=== PATIENT | male | born 1955 | race Hispanic/Latino ===

== ENCOUNTER 2021-05-31 09:25 | Emergency (ER) | payer MEDICARE ==
[~2021-05-31] VITALS: Ht 170.2 cm; Wt 64.9 kg
[2021-05-31 09:27] VITALS: BP 121/52
[2021-05-31 09:43] LABS: BASOPHILS % (AUTO) 0.1 % (0.0-5.0); EOSINOPHILS % (AUTO) 0.5 % (0.0-8.0); HEMATOCRIT 38.3 % (42-54); LYMPHOCYTES % (AUTO) 2.2 % (21.0-51.0); MEAN CORPUSCULAR HEMOGLOBIN 31.4 pg (27.0-33.0); MEAN CORPUSCULAR HGB CONC 33.9 g/dL (32.0-36.0); MEAN CORPUSCULAR VOLUME 92.5 fL (79-99); MONOCYTES % (AUTO) 2.8 % (3.0-13.0); NEUTROPHILS % (AUTO) 93.9 % (40.0-77.0); PLATELET COUNT (AUTO) 212 K/uL (130-400); RED BLOOD CELL COUNT(AUTO) 4.14 MIL/uL (4.50-6.20); RED CELL DISTRIBUTION WIDTH 12.2 % (11.0-15.5); WHITE BLOOD COUNT (AUTO) 11.6 K/uL (4.8-10.8)
[2021-05-31 09:51] LABS: CREATININE 1.5 mg/dL (0.5-1.5); POTASSIUM 5.2 mmol/L (3.5-5.1)
[2021-05-31 09:56] LABS: ALBUMIN 3.2 g/dL (3.5-5.0); BILIRUBIN,TOTAL 1.1 mg/dL (0.2-1.0); TOTAL PROTEIN, SERUM 7.8 g/dL (6.0-8.3)
[2021-05-31 10:33] LABS: AMYLASE 47 U/L (25-115); LIPASE < 50 U/L (114-286)
[2021-05-31] MEDS ORDERED: AMOX-429 PO (14:41)
[2021-05-31] MEDS ORDERED: AMOX/CLAV 875/125MG TAB PO ONE ×2 (14:57→15:00)
== END 2021-05-31 15:00 | disposition home or self-care (01) ==
LOC: EDH 09:25
DX: K80.20 Calculus of gallbladder without cholecystitis without obstruction (principal); D72.829 Elevated white blood cell count, unspecified; R68.83 Chills (without fever); Z20.822 Contact with and (suspected) exposure to COVID-19; E78.00 Pure hypercholesterolemia, unspecified; I10 Essential (primary) hypertension
CPT/HCPCS: 36415; 71045; 76705; 80053; 82150; 83690; 85025; 87635; 87804; 93005; C9803

== ENCOUNTER 2023-09-09 13:28 | Emergency (ER) | payer MEDICARE ==
[~2023-09-09] VITALS: Ht 170.2 cm; Wt 72.6 kg
[~2023-09-09 13:28] MED LIST: AMOX-429 PO
[2023-09-09] MEDS ORDERED: ONDANSETRON 4MG INJ IVP ONE (14:30)
[2023-09-09] MEDS ORDERED: CEFAZOLIN SODIUM 1 GM VIAL IVPB SCH (14:30)
[2023-09-09] MEDS ORDERED: MORPHINE 4 MG SYG IM ONE (14:30)
[2023-09-09] MEDS ORDERED: LIDOCAINE HCL 1% 20 ML VIAL ONE (15:56)
[2023-09-09 18:17] VITALS: BP 126/74; PULSE 64; RESP 18; O2SAT 98
== END 2023-09-09 18:19 | disposition home or self-care (01) ==
LOC: EDH 13:28
DX: S69.92XA Unspecified injury of left wrist, hand and finger(s), initial encounter (principal); I10 Essential (primary) hypertension; E78.00 Pure hypercholesterolemia, unspecified; X58.XXXA Exposure to other specified factors, initial encounter; Y93.89 Activity, other specified; Y92.89 Other specified places as the place of occurrence of the external cause; Y99.8 Other external cause status
CPT/HCPCS: 99284; 96365; 96375; 73120; 73140; 96372; J0690; J2405; J2270

== ENCOUNTER 2023-11-28 14:05 | Emergency (ER) | payer MEDICARE ==
[~2023-11-28] VITALS: Ht 170.2 cm; Wt 73.5 kg
[2023-11-28 15:04] LABS: BASOPHILS # (AUTO) 0.03 K/uL (0.00-0.20); BASOPHILS % (AUTO) 0.3 % (0.0-5.0); EOSINOPHILS % (AUTO) 1.1 % (0.0-8.0); HEMATOCRIT 42.2 % (42-54); IMMATURE GRANULOCYTE ABSOLUTE 0.02 K/uL (0-1); LYMPHOCYTES # (AUTO) 1.9 K/uL (1.0-4.8); LYMPHOCYTES % (AUTO) 20.1 % (21.0-51.0); MEAN CORPUSCULAR HEMOGLOBIN 31.8 pg (27.0-33.0); MEAN CORPUSCULAR HGB CONC 34.6 g/dL (32.0-36.0); MEAN CORPUSCULAR VOLUME 91.9 fL (79-99); MONOCYTES # (AUTO) 0.5 K/uL (0.1-1.0); MONOCYTES % (AUTO) 5.6 % (3.0-13.0); NEUTROPHILS # (AUTO) 6.9 K/uL (1.8-7.7); NEUTROPHILS % (AUTO) 72.7 % (40.0-77.0); PLATELET COUNT (AUTO) 182 K/uL (130-400); RED BLOOD CELL COUNT(AUTO) 4.59 MIL/uL (4.50-6.20); RED CELL DISTRIBUTION WIDTH 12.7 % (11.0-15.5); WHITE BLOOD COUNT (AUTO) 9.5 K/uL (4.8-10.8)
[2023-11-28 15:17] LABS: CREATININE 1.4 mg/dL (0.5-1.5); POTASSIUM 4.4 mmol/L (3.5-5.1)
[2023-11-28 15:42] LABS: ADD UA MICROSCOPIC YES; APPEARANCE,URINE CLEAR (CLEAR); BILIRUBIN,URINE NEGATIVE (NEGATIVE); COLOR,URINE LIGHT-YELLOW (YELLOW); GLUCOSE, URINE (UA) NEGATIVE (NEGATIVE); KETONES,URINE NEGATIVE (NEGATIVE); LEUKOCYTE ESTERASE ,URINE NEGATIVE Leu/uL (NEGATIVE); NITRATE,URINE NEGATIVE (NEGATIVE); OCCULT BLOOD,URINE LARGE (NEGATIVE); PROTEIN,URINE NEGATIVE (NEGATIVE); UROBILINOGEN,URINE 0.2 mg/dL (0.2-1.0)
[2023-11-28 15:47] LABS: BACTERIA,URINE RARE /HPF (None Seen); MUCUS,URINE RARE LPF (None Seen); RBC,URINE 51-100 /HPF (0-1)
[2023-11-28] MEDS ORDERED: IOHEXOL-350 75 ML VIAL IV ONE (15:54)
[2023-11-28] MEDS: LACTATED RINGERS 1000ML 1,000 ML IV ONE (16:25)
[2023-11-28] MEDS: FAMOTIDINE 20MG VIAL IV ONE (16:26)
[2023-11-28] MEDS: METOCLOPRAMIDE 10 MG/2 ML VIAL IVP ONE (16:27)
[2023-11-28] MEDS: KETOROLAC 30MG VIAL (30MG/ML) IVP ONE (16:28)
[2023-11-28] MEDS ORDERED: KETO10 PO (16:48)
[2023-11-28] MEDS ORDERED: TAMS-1 PO (16:48)
[2023-11-28] MEDS ORDERED: METO-296 PO (16:48)
[2023-11-28] MEDS ORDERED: FAMO-136 PO (16:48)
[2023-11-28] MEDS: TAMSULOSIN HCL 0.4 MG CAP.ER.24H PO ONE (17:14)
[2023-11-28 17:15] VITALS: BP 133/78; PULSE 78; RESP 18; O2SAT 98
== END 2023-11-28 17:21 | disposition home or self-care (01) ==
LOC: EDH 14:05
DX: N20.0 Calculus of kidney (principal); I10 Essential (primary) hypertension; E78.00 Pure hypercholesterolemia, unspecified; Z98.890 Other specified postprocedural states
CPT/HCPCS: 99285; 74178; 96374; 96375; 96361; 80048; 83690; 85025; 87088; 81001; 36415; 76870; J7120; J3490; J1885; J2765; Q9967

== ENCOUNTER 2024-02-26 00:03 | Emergency (ER) | payer MEDICARE ==
[~2024-02-26] VITALS: Ht 170.2 cm; Wt 76.3 kg
[~2024-02-26 00:03] MED LIST changes: +FAMO-136 PO; +KETO10 PO; +METO-296 PO; +TAMS-1 PO
[2024-02-26] MEDS: FAMOTIDINE 20MG VIAL IV ONE (00:21)
[2024-02-26] MEDS: ONDANSETRON 4MG INJ IVP ONE (00:21)
[2024-02-26] MEDS: MORPHINE 2 MG SYG IVP ONE (00:22)
[2024-02-26 00:38] LABS: BASOPHILS # (AUTO) 0.02 K/uL (0.00-0.20); BASOPHILS % (AUTO) 0.2 % (0.0-5.0); EOSINOPHILS # (AUTO) 0.23 K/uL (0.00-0.70); EOSINOPHILS % (AUTO) 2.8 % (0.0-8.0); HEMATOCRIT 39.7 % (42-54); IMMATURE GRANULOCYTE ABSOLUTE 0.02 K/uL (0-1); MEAN CORPUSCULAR HEMOGLOBIN 32.6 pg (27.0-33.0); MEAN CORPUSCULAR VOLUME 93.2 fL (79-99); MONOCYTES # (AUTO) 0.6 K/uL (0.1-1.0); MONOCYTES % (AUTO) 7.4 % (3.0-13.0); NEUTROPHILS # (AUTO) 5.5 K/uL (1.8-7.7); NEUTROPHILS % (AUTO) 65.4 % (40.0-77.0); PLATELET COUNT (AUTO) 169 K/uL (130-400); RED BLOOD CELL COUNT(AUTO) 4.26 MIL/uL (4.50-6.20); RED CELL DISTRIBUTION WIDTH 13.1 % (11.0-15.5); WHITE BLOOD COUNT (AUTO) 8.4 K/uL (4.8-10.8)
[2024-02-26 00:44] LABS: CREATININE 1.5 mg/dL (0.5-1.3); POTASSIUM 3.8 mmol/L (3.5-5.1)
[2024-02-26 00:49] LABS: ALBUMIN 3.7 g/dL (3.5-5.0); BILIRUBIN,TOTAL 0.8 mg/dL (0.2-1.0); TOTAL PROTEIN, SERUM 6.6 g/dL (6.0-8.3)
[2024-02-26 00:56] LABS: INR <= 0.93 (0.85-1.15); PROTHROMBIN TIME 10.6 SEC (9.6-11.6)
[2024-02-26 00:57] LABS: PARTIAL THROMBOPLASTIN TIME 30.1 SEC (26.3-35.5)
[2024-02-26] MEDS ORDERED: IOHEXOL-350 75 ML VIAL IV ONE (01:02)
[2024-02-26] MEDS ORDERED: ACET-2743 PO (01:58)
[2024-02-26 02:13] VITALS: BP 165/74; PULSE 54; RESP 18; O2SAT 96
== END 2024-02-26 02:18 | disposition home or self-care (01) ==
LOC: EDH 00:03
DX: K80.70 Calculus of gallbladder and bile duct without cholecystitis without obstruction (principal); E78.00 Pure hypercholesterolemia, unspecified; I10 Essential (primary) hypertension
CPT/HCPCS: 99285; 74177; 96374; 96375; 84484; 80053; 83690; 85025; 85610; 85730; 83605; 36415; 93005; 84145; J3490; J2270; J2405; Q9967